=== PATIENT | male | born 1965 | race Hispanic/Latino ===

== ENCOUNTER 2018-09-25 18:55 | Inpatient (IN) | payer MEDICAID ==
--- NOTE | 2018-09-25 20:10 | C.PDOC ---
History Of Present Illness 53 year old male presents for detox from ETOH and opiates. Last opiate use was this afternoon, last use ETOH use was a day ago. Denies any complaints at this time. Chief Complaint (Nursing): Substance Abuse History Per: Patient History/Exam Limitations: no limitations Onset/Duration Of Symptoms: Days Current Symptoms Are (Timing): Still Present Suicide/Self Injury Attempted (Context): None Modifying Factor(s): Other (Opiates) Associated Symptoms: denies: Depression, Suicidal Thoughts Involuntary Hold By: None Recent travel outside of the [place]: No Past Medical History Reviewed: Historical Data, Nursing Documentation, Vital Signs Vital Signs: Last Vital Signs Temp 98.5 F 09/25/18 19:31 Pulse 70 09/25/18 19:31 Resp 20 09/25/18 19:31 BP 139/87 09/25/18 19:31 Pulse Ox 95 09/25/18 19:31 Family History: States: Unknown Family Hx - Social History Hx Alcohol Use: Yes Hx Substance Use: Yes Review Of Systems Constitutional: Negative for: Fever, Chills Cardiovascular: Negative for: Chest Pain, Palpitations Respiratory: Negative for: Cough, Shortness of Breath Gastrointestinal: Negative for: Nausea, Vomiting Neurological: Negative for: Weakness, Numbness Physical Exam - Physical Exam Appears: Non-toxic, Other (Calm, cooperative) Skin: Normal Color, Warm, Dry Head: Atraumatic, Normacephalic Eye(s): bilateral: Normal Inspection Oral Mucosa: Moist Chest: Symmetrical, No Tenderness Cardiovascular: Rhythm Regular Respiratory: Normal Breath Sounds, No Rales, No Rhonchi, No Wheezing Gastrointestinal/Abdominal: Soft, No Tenderness Neurological/Psych: Oriented x3, Normal Speech, Other (No tremors) ED Course And Treatment - Laboratory Results Result Diagrams: 09/25/18 20:26 09/25/18 20:26 O2 Sat by Pulse Oximetry: 95 (Room air) Pulse Ox Interpretation: Normal Progress Note: Blood work and urinalysis ordered. Disposition Discussed With : Ebenezer Markham Doctor Will See Patient In The: Hospital Counseled Patient/Family Regarding: Diagnosis - Disposition Disposition: HOSPITALIZED Disposition Time: 21:39 Condition: STABLE Forms: [facility] (Italian) - POA Present On Arrival: None - Clinical Impression Clinical Impression: Opiate dependence, Drug abuse, Alcohol abuse - Scribe Statement The provider has reviewed the documentation as recorded by the Scribe Gautam Escamilla All medical record entries made by the Rgibmildred were at my direction and pers onally dictated by me. I have reviewed the chart and agree that the record accurately reflects my personal performance of the history, physical exam, medical decision making, and the department course for this patient. I have also personally directed, reviewed, and agree with the discharge instructions and disposition.
[2018-09-25 20:32] LABS: HEMOGLOBIN 15.3 g/dL (12.0-18.0); RBC 5.36 Mil/uL (4.40-5.90); WHITE BLOOD COUNT 9.3 K/uL (4.8-10.8)
[2018-09-25 20:33] LABS: BASO # 0.1 K/uL (0.0-0.2); BASO % 0.7 % (0.0-2.0); EOS # 0.5 K/uL (0.0-0.7); LYMPH # 3.3 K/uL (1.0-4.3); LYMPH % 35.3 % (20.0-40.0); MEAN CELL VOLUME 86.3 fL (80.0-94.0); MEAN CORPUSCULAR HEMOGLOBIN 28.6 pg (27.0-31.0); MEAN CORPUSCULAR HGB CONC 33.2 g/dL (33.0-37.0); MEAN PLATELET VOLUME 8.7 fL (7.2-11.7); MONO # 0.5 K/uL (0.0-0.8); MONO % 5.7 % (0.0-10.0); NEUT # 4.9 K/uL (1.8-7.0); NEUT % 53.3 % (50.0-75.0); NRBC % 0.1 % (0.0-2.0); RED CELL DISTRIBUTION WIDTH 13.9 % (11.5-14.5)
[2018-09-25 20:37] LABS: URINE BILIRUBIN NEGATIVE (NEGATIVE); URINE BLOOD NEGATIVE (NEGATIVE); URINE CLARITY Clear (Clear); URINE COLOR Straw (YELLOW); URINE GLUCOSE (UA) NORMAL (Normal); URINE LEUKOCYTE ESTERASE NEG Leu/uL (Negative); URINE PROTEIN NEGATIVE (NEGATIVE); URINE UROBILINOGEN NORMAL mg/dL (0.2-1.0)
[2018-09-25 20:48] LABS: ALB/GLOB RATIO 1.6 (1.0-2.1); ALT/SGPT 32 U/L (21-72); AST/SGOT 35 U/L (17-59); BLOOD UREA NITROGEN 12 mg/dL (9-20); CALCIUM 9.4 mg/dl (8.6-10.4); GFR NON-AFRICAN AMERICAN > 60
[2018-09-25 20:50] LABS: BARBITURATES, UR NEGATIVE (NEGATIVE); BENZODIAZEPINES, UR NEGATIVE (NEGATIVE); PHENCYCLIDINE, UR NEGATIVE (NEGATIVE)
[2018-09-25 20:58] LABS: OPIATES, UR POSITIVE (NEGATIVE)
[2018-09-25] MEDS ORDERED: Aluminum Hydroxide/Magnesium Hydroxide Susp (30 mL) PO PRN (22:25)
--- NOTE | 2018-09-26 00:29 | PCM.BM ---
<Lele Cho - Last Filed: 09/26/18 00:26> Treatment Plan Problems - Problems identified on initial assessmt Knowledge deficit: Alcohol Date Initiated: 09/26/18 Time Initiated: 00:27 Assessment reference: NA Status: Active Anxiety r/t Substance use Date Initiated: 09/26/18 Time Initiated: 00:27 Assessment reference: NA Status: Active Defensive Coping Date Initiated: 09/26/18 Time Initiated: 00:28 Assessment reference: NA Status: Active Treatment assets and liabiliti Patient Assests: cooperative, self-reliant, ADL independent, physically healthy, cognitively intact, good interpersonal skills Patient Liabilities: substance abuse - Milieu Protocol Maintain good personal hygiene: daily Encourage regular showers, daily Remind patient to perform daily oral care, daily Assist patient to perform ADL's Maintain personal safety: every shift Educate patient to report safety concerns to staff, every shift Monitor environment for contraband/sharps Medication safety: Monitor for expected outcome, potential side effects: every shift, Assess barriers to learning: every shift, Assess readiness for medication education: every shift <Garland Acharya - Last Filed: 09/27/18 19:07> - Diagnosis (1) Alcohol use disorder, severe, dependence Status: Acute Interventions: 09/27/18 19:06 * Assess 7x/week regarding severity of withdrawal * Educate regarding risks, benefits, side effects and alternatives of medications * Use Motivational Interviewing for abstinence * Use CBT for relapse prevention * Medication management for withdrawal symptoms * Encourage medication assisted treatment * (2) Opiate dependence Status: Acute Interventions: 09/27/18 19:06 * Assess 7x/week regarding severity of withdrawal * Educate regarding risks, benefits, side effects and alternatives of medications * Use Motivational Interviewing for abstinence * Use CBT for relapse prevention * Medication management for withdrawal symptoms * Encourage medication assisted treatment *
[2018-09-26] MEDS: Multiple Vitamins Tab PO SCH (09:55)
--- NOTE | 2018-09-26 11:56 | PCM.PSYCH ---
Initial Psychiatric Evaluation - Initial Psychiatric Evaluation Type of Admission: Voluntary Legal Status: Capacity Chief Complaint (in patient's own words): "I want to stop" History of Present Illness and Precipitating Events: Patient is a 53 -year-old, male who is single, unemployed, and homeless. He has no children. He presents for heroin and alcohol detox. He admits to using 10- 20 bags of heroin, intravascularly, daily. He has been using heroin for the past 15 years with his longest sobriety being 7 years, patient relapsed in June. Patient does not have history of heroin overdoses. Patient also reports drinking 2 pints of alcohol, daily. Patient does not have a history of seizures or blackouts, but may have had near DTs. Patient denies using any other substances including PCP, cocaine, and pills. Patient has been to detox and rehab more than 10 times. He states that he has been to [facility], [facility], [place], and others. Patient denies any suicidal or homicidal ideation, hallucinations, and paranoia. Past Psychiatric History: depression (dx 5 years ago), non-compliant with meds Family Psych History: none PMHx: none Meds: none Current Medications: Active Medications Generic Name Dose Route Start Last Admin Trade Name Freq PRN Reason Stop Dose Admin Al Hydrox/Mg Hydrox/Simethicone 30 ml 09/25/18 22:25 Maalox 30 Ml PO TID PRN Indigestion / Heartburn Chlordiazepoxide 25 mg 09/26/18 00:00 09/26/18 06:14 Librium PO 09/29/18 23:59 Not Given Q6 LU Taper Chlordiazepoxide 25 mg 09/25/18 22:25 Librium PO Q4H PRN Alcohol Withdrawal Clonidine HCl 0.1 mg 09/25/18 22:25 09/25/18 23:20 Catapres PO 0.1 mg Q4H PRN Administration Symptoms of alcohol withdrawl Dicyclomine HCl 10 mg 09/25/18 22:26 Bentyl PO Q6 PRN Muscle spasm Folic Acid 1 mg 09/26/18 10:00 09/26/18 09:55 Folic Acid PO Not Given DAILY LU Hydroxyzine HCl 25 mg 09/25/18 23:21 09/25/18 23:26 Atarax PO 25 mg Q6 PRN Administration Anxiety Ibuprofen 600 mg 09/26/18 00:25 Motrin Tab PO Q6 PRN Pain, moderate (4-7) Loperamide HCl 2 mg 09/25/18 22:25 Imodium PO Q8 PRN Diarrhea Mirtazapine 15 mg 09/26/18 22:00 Remeron PO HS LU Multivitamins 1 tab 09/26/18 10:00 09/26/18 09:55 Hexavitamin PO Not Given DAILY [facility] Nicotine 1 patch 09/26/18 10:30 Nicoderm Cq TD DAILY [facility] Ondansetron HCl 4 mg 09/25/18 22:25 Zofran Tab PO Q8 PRN Nausea/Vomiting Pseudoephedrine HCl 60 mg 09/25/18 22:25 Sudafed Tab PO QID PRN Nasal/Sinus Congestion Thiamine HCl 100 mg 09/26/18 10:00 09/26/18 09:55 Vitamin B1 Tab PO Not Given DAILY LU Trazodone HCl 50 mg 09/25/18 22:25 09/25/18 23:18 Desyrel PO 50 mg HS PRN Administration Insomnia Past Psychiatric History - Past Psychiatric History Previous Treatment History: Intensive Outpatient Pertinent Medical Hx (Current Medical&Sleep Prob, Allergies): Allergies Allergy/AdvReac Type Severity Reaction Status Date / Time No Known Allergies Allergy Verified 09/25/18 19:30 No Known Home Med 09/25/18 Review of Systems - Psychiatric Psychiatric: Abnormal Sleep Pattern, Anhedonia, Anxiety, Difficulty Concen trating, Irritability, Mood Swings. absent: Hallucinations, Homicidal Ideation, Paranoia, Suicidal Ideation Mental Status Examination - Personal Presentation Personal Presentation: Looks stated age - Affect Affect: Constricted - Motor Activity Motor Activity: Calm - Reliability in Providing Information Reliability in Providing Information: Good - Speech Speech: Organized - Mood Mood: Depressed, Anxious - Formal Thought Process Formal Thought Process: No Impairment - Cognitive Functions Orientation: Person, Place, Situation, Time Sensorium: Alert Attention/Concentration: Attentive Estimate of Intelligence: Average Judgement: Intact, as evidence by: Insight regarding need for hospitalization Memory: Recent intact, as evidence by: Ability to recall events of the day, Remote intact, as evidenced by: Abilit to recall sig. life events - Risk Risk: Withdrawal, Diminished functioning - Strength & Assets Inventory Strength & Assets Inventory: Cooperative - Limitations Limitations: Other DSM 5 DX - DSM 5 DSM 5 Diagnosis: Alcohol withdrawal Alcohol use disorder, severe Opioid withdrawal Opioid use disorder, severe Major depressive d/o r/o Personality d/o - Recommended/Plan of Treatment Treatment Recommendations and Plan of Treatment: Taper with Librium and methadone Remeron for depression and insomnia Gabapentin for augmentation if needed As needed medications All risks, benefits and alternatives of the meds discussed, and the pt agreed and understood. Attend groups and activities Supportive therapy and psychoeducation [place] for abstinence CBT for relapse prevention Encourage MAT Refer to rehab or IOP, and self-help groups Teach healthy lifestyle methods, i.e. diet, exercise, meditation Smoking cessation with [place] Nicotine patch if needed 34 min Projected ELOS: 4-5 days Prognosis: good with treatment
[2018-09-27] MEDS: Multiple Vitamins Tab PO SCH (10:09)
--- NOTE | 2018-09-27 21:16 | PCM.PYCHPN ---
Psychiatric Progress Note - Psychiatric Progress Note Patient Chief Complaint: "I want to stop" Medication Change: Yes Medical Record Reviewed: Yes Mental Status Examination - Cognitive Function Orientation: Person, Place, Situation, Time - Mood Mood: Depressed, Anxious - Affect Affect: Constricted - Formal Thought Process Formal Thought Process: No Impairment Goal/Treatment Plan - Goal/Treatment Plan Progress Toward Problem(s) and Goals/Treatment Plan: Taper with Librium and methadone Remeron for depression and insomnia Gabapentin for augmentation if needed As needed medications All risks, benefits and alternatives of the meds discussed, and the pt agreed and understood. Attend groups and activities Supportive therapy and psychoeducation [place] for abstinence CBT for relapse prevention Encourage MAT Refer to rehab or IOP, and self-help groups Teach healthy lifestyle methods, i.e. diet, exercise, meditation Smoking cessation with [place] Nicotine patch if needed 34 min
[2018-09-28] MEDS: Multiple Vitamins Tab PO SCH (09:30)
[2018-09-28 13:31] VITALS: RESP 18
[2018-09-28 21:38] VITALS: O2SAT 96
--- NOTE | 2018-09-29 01:11 | PCM.PYCHPN ---
Psychiatric Progress Note - Psychiatric Progress Note Patient seen today, length of contact: 17 min Patient Chief Complaint: "I want to stop" Medication Change: Yes Medical Record Reviewed: Yes Mental Status Examination - Cognitive Function Orientation: Person, Place, Situation, Time - Mood Mood: Depressed, Anxious - Affect Affect: Constricted - Formal Thought Process Formal Thought Process: No Impairment Goal/Treatment Plan - Goal/Treatment Plan Progress Toward Problem(s) and Goals/Treatment Plan: Taper with Librium and methadone Remeron for depression and insomnia Gabapentin for augmentation if needed As needed medications All risks, benefits and alternatives of the meds discussed, and the pt agreed and understood. Attend groups and activities Supportive therapy and psychoeducation [place] for abstinence CBT for relapse prevention Encourage MAT Refer to rehab or IOP, and self-help groups Teach healthy lifestyle methods, i.e. diet, exercise, meditation Smoking cessation with [place] Nicotine patch if needed 34 min
[2018-09-29] MEDS: Multiple Vitamins Tab PO SCH (09:48)
--- NOTE | 2018-09-29 10:54 | PCM.PYCHDC ---
Mental Status Examination - Mental Status Examination Orientation: Person Discharge Summary - Discharge Note Consultations:: List each consultation separately and include: 1. Reason for request. 2. Findings. 3. Follow-up Summary of Hospital Course include:: 1. Description of specific treatment plan utilized for patients during their course of treatmen. 2. Summarize the time- course for resolution of acute symptoms and/or regressed behaviors. 3. Describe issues identified and worked on during hospitalization. 4. Describe medication utilized. 5. Describe medical problems identified and treated. 6. Reassessment of suicide risk Summary of Hospital Course: Patient is a 53 -year-old, male who is single, unemployed, and homeless. He has no children. He presents for heroin and alcohol detox. He admits to using 10- 20 bags of heroin, intravascularly, daily. He has been using heroin for the past 15 years with his longest sobriety being 7 years, patient relapsed in June. Patient does not have history of heroin overdoses. Patient also reports drinking 2 pints of alcohol, daily. Patient does not have a history of seizures or blackouts, but may have had near DTs. Patient denies using any other substances including PCP, cocaine, and pills. Patient has been to detox and rehab more than 10 times. He states that he has been to [facility], [facility], [place], and others. Patient denies any suicidal or homicidal ideation, hallucinations, and paranoia. Past Psychiatric History: depression (dx 5 years ago), non-compliant with meds Family Psych History: none PMHx: none Meds: none He will go to [facility] in [place]. - Diagnosis (1) Alcohol use disorder, severe, dependence Current Visit: Yes Status: Acute (2) Opiate dependence Current Visit: Yes Status: Acute - Final Diagnosis (DSM 5) Condition upon Discharge: STABLE Disposition: HOME/ ROUTINE Follow-up Treatment Plan: Taper with Librium and methadone Remeron for depression and insomnia Gabapentin for augmentation if needed As needed medications All risks, benefits and alternatives of the meds discussed, and the pt agreed and understood. Attend groups and activities Supportive therapy and psychoeducation [place] for abstinence CBT for relapse prevention Encourage MAT Refer to rehab or IOP, and self-help groups Teach healthy lifestyle methods, i.e. diet, exercise, meditation Smoking cessation with [place] Nicotine patch if needed 34 min
[2018-09-29 10:56] VITALS: BP 98/61; PULSE 65; TEMP 97.4
== END 2018-09-29 11:30 | disposition home or self-care (01) | DRG 745 ==
LOC: C.ER 18:55 → C.7D 21:37
PROVIDERS: ADMIT Psychiatry & Neurology Psychiatry; ATTEND Psychiatry & Neurology Psychiatry
PROC: HZ2ZZZZ Detoxification Services for Substance Abuse Treatment (ICD-10-PCS; principal; 2018-09-25)
PROC: HZ52ZZZ Individual Psychotherapy for Substance Abuse Treatment, Cognitive-Behavioral (ICD-10-PCS; 2018-09-25)
PROC: HZ59ZZZ Individual Psychotherapy for Substance Abuse Treatment, Supportive (ICD-10-PCS; 2018-09-25)
PROC: HZ56ZZZ Individual Psychotherapy for Substance Abuse Treatment, Psychoeducation (ICD-10-PCS; 2018-09-25)
PROC: HZ42ZZZ Group Counseling for Substance Abuse Treatment, Cognitive-Behavioral (ICD-10-PCS; 2018-09-25)
PROC: HZ46ZZZ Group Counseling for Substance Abuse Treatment, Psychoeducation (ICD-10-PCS; 2018-09-25)
PROC: GZHZZZZ Group Psychotherapy (ICD-10-PCS; 2018-09-25)
PROC: GZ58ZZZ Individual Psychotherapy, Cognitive-Behavioral (ICD-10-PCS; 2018-09-25)
PROC: GZ56ZZZ Individual Psychotherapy, Supportive (ICD-10-PCS; 2018-09-25)
DX: F10.230 Alcohol dependence with withdrawal, uncomplicated (principal); Y90.0 Blood alcohol level of less than 20 mg/100 ml; F11.23 Opioid dependence with withdrawal; G47.00 Insomnia, unspecified; F32.9 Major depressive disorder, single episode, unspecified; Z91.14 Patient's other noncompliance with medication regimen; Z59.0 Homelessness